=== PATIENT | male | born 1970 | race African-American/Black ===

== ENCOUNTER 2019-09-25 16:09 | Emergency (ER) | payer MEDICAID, OTHER ==
[~2019-09-25] VITALS: Ht 177.8 cm; Wt 75.0 kg
[2019-09-25 16:13] VITALS: BP 185/87
== END 2019-09-25 16:35 | disposition left against medical advice (07) ==
LOC: ER 16:34
DX: R55 Syncope and collapse (principal); I12.0 Hypertensive chronic kidney disease with stage 5 chronic kidney disease or end stage renal disease; N18.6 End stage renal disease; Z94.0 Kidney transplant status; Z88.2 Allergy status to sulfonamides
CPT/HCPCS: 99283